=== PATIENT | male | born 1930 | race Caucasian/White ===

== ENCOUNTER 2017-07-01 08:10 | Emergency (ER) | payer MEDICARE, OTHER ==
[~2017-07-01] VITALS: Ht 165.1 cm; Wt 77.1 kg
[~2017-07-01 08:10] MED LIST: AMIODARONE HCL200 MG PO; ASPIRIN EC81 MG PO; BENICAR20 MG PO; COREG6.25 MG PO; FOLBIC TABLET1 EACH PO; GLIPIZIDE ER2.5 MG PO; HYDROCODON-ACE1 EA10 PO; LASIX20 MG PO; LEVOTHROID88 MCG PO; LIPITOR20 MG PO; MIRALAX119 GM PO; NITROFURANTOIN100 MG PO; POTASSIUM CHLO10 MEQ PO; ZETIA10 MG PO
[2017-07-01] MEDS ORDERED: MACULAR HEALTH1 EACH PO (09:12)
[2017-07-01] MEDS ORDERED: ZETIA10 MG PO (09:12)
[2017-07-01] MEDS ORDERED: TRAMADOL HCL50 MG PO (09:12)
[2017-07-01] MEDS ORDERED: MAGNESIUM250 M1 PO (09:14)
--- NOTE | 2017-07-01 20:45 | EKG ---
[facility] [address] [facility] [place] [address] Signed Sinus bradycardia Right bundle branch block Abnormal ECG No previous ECGs available Confirmed by SILVER WHITE MD ([id number]) on 07/01/2017 8:45:40 PM Electronically Signed By: SILVER WHITE MD 07/01/17 2045 PATIENT NAME: ROSALINE HILL Electrocardiogram DATE OF : [birth year] PHYSICIAN: SILVER WHITE MD REPORT #: [id number] REPORT IS CONFIDENTIAL AND NOT TO BE RELEASED WITHOUT AUTHORIZATION
== END 2017-07-01 09:47 | disposition home or self-care (01) ==
LOC: ED 08:10
DX: R06.02 Shortness of breath (principal); N18.9 Chronic kidney disease, unspecified; Z79.82 Long term (current) use of aspirin; Z79.899 Other long term (current) drug therapy; Z88.8 Allergy status to other drugs, medicaments and biological substances
CPT/HCPCS: 71020; 80053; 83880; 84484; 85025; 93005; 93010; 99284

== ENCOUNTER 2018-05-11 18:12 | Emergency (ER) | payer MEDICARE, OTHER ==
[~2018-05-11] VITALS: Ht 165.1 cm; Wt 77.1 kg
[~2018-05-11 18:12] MED LIST changes: +MACULAR HEALTH1 EACH PO; +MAGNESIUM250 M1 PO; +TRAMADOL HCL50 MG PO
== END 2018-05-11 21:57 | disposition home or self-care (01) ==
LOC: ED 18:12
DX: K52.9 Noninfective gastroenteritis and colitis, unspecified (principal); E11.9 Type 2 diabetes mellitus without complications; I50.9 Heart failure, unspecified; Z87.891 Personal history of nicotine dependence; Z79.899 Other long term (current) drug therapy; Z79.82 Long term (current) use of aspirin
CPT/HCPCS: 80053; 81001; 85025; 96361; 96374; 99283; J2405; J7030

== ENCOUNTER 2018-05-17 18:09 | Emergency (ER) | payer MEDICARE, OTHER ==
[~2018-05-17] VITALS: Ht 165.1 cm; Wt 74.8 kg
[2018-05-17] MEDS ORDERED: HYDROCODON-ACE1 EAC8 PO (18:28)
[2018-05-17] MEDS ORDERED: GOLYTELY SOLU4000 ML PO (21:37)
== END 2018-05-17 21:47 | disposition home or self-care (01) ==
LOC: ED 18:09
DX: K59.00 Constipation, unspecified (principal); K92.1 Melena; I48.91 Unspecified atrial fibrillation; E11.9 Type 2 diabetes mellitus without complications; Z87.891 Personal history of nicotine dependence; Z79.899 Other long term (current) drug therapy
CPT/HCPCS: 74018; 74176; 80053; 81001; 83690; 85025; 85610; 85730; 99284

== ENCOUNTER 2018-08-21 05:35 | Day surgery (SDC) | payer MEDICARE, OTHER ==
[~2018-08-21] VITALS: Ht 165.1 cm; Wt 73.5 kg
[~2018-08-21 05:35] MED LIST changes: +GOLYTELY SOLU4000 ML PO; +HYDROCODON-ACE1 EAC8 PO
--- NOTE | 2018-08-21 08:51 | NUR ---
[facility] IN PAC[facility] AWAKE WITH NO C/O'S. BLOOD SUGAR 128 ON ARRIVAL. 0835 OXGYEN REMOVED. SATS 99-100% ON RA. 0845 SITTING UP IN BED SIPPING ON WATER.
[2018-08-21] MEDS ORDERED: AUGMENTIN 875-1 EACH PO (08:57)
--- NOTE | 2018-08-21 12:03 | OR ---
[facility] [address] [place], [place] [address] Signed DATE OF OPERATION: 08/21/2018 SURGEON: Aleksandar Mendoza MD PREOPERATIVE DIAGNOSES: 1. Bladder lesions. 2. Neurogenic bladder with chronic clean intermittent catheterization. POSTOPERATIVE DIAGNOSES: 1. Bladder lesions. 2. Neurogenic bladder with chronic clean intermittent catheterization. NAMES OF PROCEDURES: 1. Examination under anesthesia. 2. Diagnostic cystoscopy with bilateral retrograde pyelograms. 3. Cold cup bladder biopsy with Bugbee fulguration. ANESTHESIA: MAC. ESTIMATED BLOOD LOSS: Minimal. COMPLICATIONS: None. SPECIMENS: Two pieces of tissue obtained from the bladder wall mucosa, one located on the left lateral wall and the other on the right lateral wall, sent to pathology for evaluation. DRAINS: None. INDICATIONS FOR PROCEDURE: Mr. Hill is a very pleasant 88-year-old gentleman with a longstanding history of neurogenic bladder after suffering iatrogenic damage during a lumbar spine surgery in the . Since that time, he has been performing clean intermittent catheterization without difficulty. He recently underwent a surveillance cystoscopy, which revealed a couple of areas of erythema on the bladder wall, that appeared to be suspicious for carcinoma in situ. He presents today to undergo cystoscopy with a biopsy of the Electronically Signed By: ALEKSANDAR MENDOZA MD 08/21/18 1203 PATIENT NAME: ROSALINE HILL OPERATIVE REPORT DATE OF : [birth year] REPORT #: [id number] PHYSICIAN: ALEKSANDAR MENDOZA MD PCP: SUSAN MONTELONGO MD REPORT IS CONFIDENTIAL AND NOT TO BE RELEASED WITHOUT AUTHORIZATION [facility] [address] [place], [place] [address] Signed lesions. FINDINGS: 1. Digital rectal examination was performed, which reveals a 50 g prostate that is mildly asymmetric on the right side; no obvious nodularity of the gland, although it is diffusely firm and rubbery. 2. Cystoscopy was performed, which revealed diffuse grade 3 bladder wall trabeculation along with a couple of areas of patchy erythema with mucosal cracking, particularly on the right and lateral stuart of the bladder. Each of these areas was biopsied using cold cup forceps and then was cauterized using Bugbee monopolar cautery. 3. Bilateral retrograde pyelogram were performed, which revealed no evidence of any obvious calyceal blunting on either side. There was a dimple just medial to a golf-hole appearing right ureteral orifice; at that time, I suspect that this could be another ureteral orifice, however, retrograde pyelogram today reveals that this is just a dimple within the bladder wall. The left ureteral orifice is normal and does efflux clear urine. The right ureteral orifice again is very large and golf-hole in appearance, and does efflux clear urine. DESCRIPTION OF PROCEDURE: After informed consent was obtained, the patient was taken back to the operating room. [facility] operating room table, where MAC anesthesia was induced. He was placed in the dorsal lithotomy position and his genitalia prepped and draped in sterile fashion. Using a 22-1/2-Latvian sheath, a rigid cystoscope was inserted through urethra into his bladder under direct visualization. Panendoscopic views of the bladder were then obtained. Please see above findings. A cone-tipped catheter was advanced to the to the right ureteral orifice and a right retrograde pyelogram was performed. I also attempted to inject dye into this what appeared to be a 2nd ureteral orifice just medial to the golf-hole shaved ureteral orifice. This did not end up to be anything related to the collecting system. I then inserted the cone-tip catheter into the left ureteral orifice and performed a left retrograde pyelogram. Please see above findings. I then removed the cone-tipped catheter and replaced it with the cold cup biopsy forceps. I then obtained two separate small pieces of tissue from the two moderately sized areas of erythema on either side of the bladder wall. These two pieces of tissue were submitted together to be evaluated to rule out possible carcinoma in situ. The Bugbee was then used to cauterize these areas. Once adequate hemostasis was achieved, I drained the patient's bladder completely and then I removed the cystoscope. Prior to the beginning of the procedure, a digital rectal examination was performed. Please see above findings. Once the cystoscope was removed, the procedure was terminated. The patient tolerated the procedure well without any complication. He will now be transferred to the postanesthesia care unit in stable condition. Electronically Signed By: ALEKSANDAR MENDOZA MD 08/21/18 1203 PATIENT NAME: ROSALINE HILL OPERATIVE REPORT DATE OF : [birth year] REPORT #: [id number] PHYSICIAN: ALEKSANDAR MENDOZA MD PCP: SUSAN MONTELONGO MD REPORT IS CONFIDENTIAL AND NOT TO BE RELEASED WITHOUT AUTHORIZATION [facility] [address] [place] [id number] Signed DISPOSITION: I discussed the details of today's procedure with Asif's and answered all of her questions. I told his that there are no discrete nodules noted on his digital rectal examination, and that his cystoscopy appeared normal. However, we are sending a couple of small pieces of tissue to be evaluated for possible abnormality. He will be sent home today with Augmentin 875 mg p.o. b.i.d. for a total of 7 days. He has been asked to return to his usual clean intermittent catheterization routine. He will return to the Clinic in 6 weeks with a urine check to discuss his pathology results. I told Asif earlier today that if they are abnormal, I will contact him once the pathology results become available. MD JOHANNY Claros/AMBROSIO /[id number] Copies: ~ Electronically Signed By: ALEKSANDAR MENDOZA MD 08/21/18 1203 PATIENT NAME: ROSALINE HILL OPERATIVE REPORT DATE OF : [birth year] REPORT #: [id number] PHYSICIAN: ALEKSANDAR MENDOZA MD PCP: SUSAN MONTELONGO MD REPORT IS CONFIDENTIAL AND NOT TO BE RELEASED WITHOUT AUTHORIZATION
== END 2018-08-21 09:25 | disposition home or self-care (01) ==
LOC: OPS 05:35 → DS 05:35 → OPS 06:45
PROVIDERS: Urology
PROC: 0TBB8ZX Excision of Bladder, Via Natural or Artificial Opening Endoscopic, Diagnostic (ICD-10-PCS; principal; 2018-08-21 06:45)
PROC: BT14YZZ Fluoroscopy of Kidneys, Ureters and Bladder using Other Contrast (ICD-10-PCS; 2018-08-21 06:45)
DX: N30.90 Cystitis, unspecified without hematuria (principal); N31.9 Neuromuscular dysfunction of bladder, unspecified; E78.5 Hyperlipidemia, unspecified; I13.0 Hypertensive heart and chronic kidney disease with heart failure and stage 1 through stage 4 chronic kidney disease, or unspecified chronic kidney disease; I50.9 Heart failure, unspecified; E11.22 Type 2 diabetes mellitus with diabetic chronic kidney disease; N18.4 Chronic kidney disease, stage 4 (severe); E78.00 Pure hypercholesterolemia, unspecified; K21.9 Gastro-esophageal reflux disease without esophagitis; Z79.899 Other long term (current) drug therapy; Z87.891 Personal history of nicotine dependence
CPT/HCPCS: 74420; J0696; J2405; J2704; J3010; J7120; Q9967